=== PATIENT | female | born 1990 | race African-American/Black ===

== ENCOUNTER 2017-10-02 14:19 | Emergency (ER) | payer SELFPAY ==
[~2017-10-02] VITALS: Ht 160 cm; Wt 78.0 kg
[2017-10-02] MEDS ORDERED: SODIUM CHLORIDE 0.9% 500 ML IV ONE (14:41)
[2017-10-02 15:20] LABS: PROTHROMBIN TIME 10.3 sec (9.4-11.6)
[2017-10-02 15:21] LABS: CHLORIDE 104 mEq/L (98-107)
[2017-10-02 15:24] LABS: CLARITY URINE CLEAR (CLEAR); COLOR URINE YELLOW (YELLOW); KETONES URINE NEGATIVE (NEGATIVE); LEUKOCYTE ESTERASE URINE TRACE (NEGATIVE); NITRITE URINE NEGATIVE (NEGATIVE); OCCULT BLOOD URINE NEGATIVE (NEGATIVE); PROTEIN URINE NEGATIVE (NEGATIVE); SPECIFIC GRAVITY URINE 1.015 (1.005-1.030)
[2017-10-02 15:27] LABS: BASOPHILS % 0.2 % (0.0-2.0); EOSINOPHILS % 3.7 % (0.0-5.0); HEMATOCRIT. 38.2 % (36.0-48.0); HEMOGLOBIN. 13.1 g/dL (12.0-16.0); LYMPHOCYTES % 10.7 % (20.0-50.0); MEAN CORPUSCULAR VOLUME 87.6 fL (81.0-99.0); MEAN PLATELET VOLUME 9.1 fl (7.4-10.4); MONOCYTES % 8.3 % (2.0-8.0); NEUTROPHILS % 77.1 % (40.0-76.0); PLATELET 184 x1000/uL (130-400); RED BLOOD CELL COUNT 4.36 mill/uL (4.2-5.4); RED CELL DISTRIBUTION WIDTH 13.5 % (11.6-14.6)
[2017-10-02 15:39] LABS: HCG SCREEN POSITIVE
[2017-10-02 18:09] VITALS: BP 147/90
== END 2017-10-02 20:06 | disposition home or self-care (01) ==
LOC: ER 14:49
DX: O24.312 Unspecified pre-existing diabetes mellitus in pregnancy, second trimester (principal); E11.649 Type 2 diabetes mellitus with hypoglycemia without coma; O16.2 Unspecified maternal hypertension, second trimester; O26.892 Other specified pregnancy related conditions, second trimester; J45.909 Unspecified asthma, uncomplicated; Z3A.19 19 weeks gestation of pregnancy
CPT/HCPCS: 36415; 80053; 81003; 82962; 83690; 84703; 85025; 85610; 93005; 96360; 96361; 99285; J7030